=== PATIENT | female | born 1960 | race Caucasian/White ===

== ENCOUNTER 2016-10-31 07:53 | Emergency (ER) | payer OTHER ==
[~2016-10-31] VITALS: Ht 160 cm; Wt 75.0 kg
[~2016-10-31 07:53] MED LIST: PROZ20CA11 PO
[2016-10-31 07:55] VITALS: BP 141/74; PULSE 92; RESP 22; TEMP 99.1; O2SAT 99
[2016-10-31] MEDS ORDERED: TETANUS/DIPHTHERIA TOXOID ADULT 0.5 ML VIAL IM ONE (08:15)
[2016-10-31] MEDS ORDERED: IBUP800T23 PO (08:41)
[2016-10-31] MEDS ORDERED: BACT800T5 PO (08:41)
[2016-10-31] MEDS ORDERED: CEPH-460 PO (08:41)
[2016-10-31] MEDS ORDERED: IBUPROFEN 800 MG TAB PO ONE (08:45)
--- NOTE | 2016-10-31 08:45 | PD ---
HPI Chief Complaint: Skin Problem Time Seen by Provider: 08:40 Travel History International Travel<30 days: No Contact w/Intl Traveler<30days: No Traveled to known affect area: No History of Present Illness HPI 56-year-old female presents to the emergency department with complaint of a puncture wound to the bottom of her left foot from stepping on a nail. Does not know the entire nail was removed from the foot. Denies being up-to-date on tetanus vaccination. This area has become very painful and she cannot bear weight. Denies drainage from the puncture wound. Reports redness around the area. Denies fever, vomiting. Denies paresthesias, loss of sensation to the affected extremity. Has taken ibuprofen for symptom management. As the puncture wound covered with Band-Aid. No known allergies. Has no other medical complaints. No other modifying factors or associated signs and symptoms. PFSH Past Medical History Blood Disorders: No Depression: Yes Heart Rhythm Problems: No Cancer: No Cardiac Catheterization: Yes Cardiovascular Problems: No (HX CARDIAC CATH) High Cholesterol: No Chest Pain: Yes Congestive Heart Failure: No Cerebrovascular Accident: No Diabetes: No Diminished Hearing: No Endocrine: Yes Gastrointestinal Disorders: Yes (HEMROIDS AND CONSTIPATION) GERD: Yes Genitourinary: No Headaches: Yes Hepatitis: No Hiatal Hernia: No Hypertension: No Immune Disorder: No Musculoskeletal: Yes (NECK PAIN) Neurologic: No Psychiatric: Yes (DEPRESSION) Reproductive: No Respiratory: No Immunizations Current: No Migraines: No Myocardial Infarction: No Renal Failure: No Seizures: No Thyroid Disease: Yes ("SLUGGISH") Ulcer: No Tetanus Vaccination: Unknown Influenza Vaccination: Yes Menopausal: Yes Tubal Ligation: Yes (1985) Past Surgical History Abdominal Surgery: Yes (TUBAL LIGATION) AICD: No Body Medical Devices: CERVICAL HARDWARE Cardiac Surgery: No Cholecystectomy: No Genitourinary Surgery: No Gynecologic Surgery: Yes (TUBAL LIGATION) Joint Replacement: No Neurologic Surgery: Yes (2007 ANTERIOR CERVICAL FUSION) Pacemaker: No Thoracic Surgery: No Other Surgery: Yes (CERVICAL FUSION) Social History Alcohol Use: Yes (COUPLE BEERS PER NIGHT) Tobacco Use: No Substance Use: No Allergies-Medications (Allergen,Severity, Reaction): Coded Allergies: No Known Allergies (Verified , 10/31/16) Reported Meds & Prescriptions Reported Meds & Active Scripts Active Ibuprofen 800 Mg Tab 800 Mg PO Q8H PRN Bactrim DS (Sulfamethoxazole-Trimethoprim) 800-160 Mg Tab 1 Tab PO BID 10 Days Keflex (Cephalexin) 500 Mg Cap 500 Mg PO Q6H 10 Days Reported Prozac (Fluoxetine HCl) 20 Mg Cap 20 Mg PO DAILY Review of Systems Except as stated in HPI: all other systems reviewed are Neg Physical Exam Narrative GENERAL: Well-nourished, well-developed female patient, in no acute distress; afebrile, nontoxic-appearing SKIN: Warm and dry. Puncture wound noted to the bottom of the left foot to the pad just below the great toe; no foreign body palpated; area is with tenderness to palpation and there is surrounding erythema and mild edema; no drainage noted. Lower extremity is supple and nontender with 2+ pupils and sensory intact. HEAD: Atraumatic. Normocephalic. EYES: Pupils equal and round. No scleral icterus. No injection or drainage. ENT: Mucosa pink and moist. Airway patent. NECK: Trachea midline. CARDIOVASCULAR: Regular rate. RESPIRATORY: No accessory muscle use. GASTROINTESTINAL: Rounded. MUSCULOSKELETAL: No obvious deformities. No clubbing. No cyanosis. No edema. NEUROLOGICAL: Awake and alert. Oriented 3. No obvious cranial nerve deficits. Motor grossly within normal limits. Normal speech. PSYCHIATRIC: Appropriate mood and affect; insight and judgment normal. Data Data Last Documented VS Vital Signs Date Time Temp Pulse Resp B/P Pulse Ox O2 Delivery O2 Flow Rate FiO2 10/31/16 07:55 99.1 92 22 141/74 99 Room Air Orders Tetanus/Diphtheria Tox Adult (Tetanus/Di (10/31/16 08:15) Foot, Complete ([id number]) (10/31/16 08:38) Ibuprofen (Motrin) (10/31/16 08:45) Crutches (10/31/16 08:38) MDM Medical Decision Making Medical Screen Exam Complete: Yes Emergency Medical Condition: Yes Medical Record Reviewed: Yes Differential Diagnosis Puncture wound, wound infection, tetanus update Narrative Course 56-year-old female with puncture wound to the bottom of her left foot. She does not know if that entire nail was removed. The wound does appear to be infected without drainage. Tetanus updated in the ER. Left foot x-ray ordered. 0925: Left foot x-ray unremarkable and without foreign body. Crutches provided for support. Bactrim, Keflex, ibuprofen prescribed for home. Patient verbalizes understanding and agreement with treatment plan. Patient is medically cleared and stable for discharge. Discussed reasons to return to the emergency department. Instructed patient to follow up with primary care provider. Patient agrees with treatment plan. The patients vital signs are stable and the patient is stable for outpatient follow-up and treatment. Patient discharged home, stable and in no acute distress. Diagnosis Primary Impression: Puncture wound of left foot Qualified Code: S91.332A - Puncture wound of left foot, initial encounter Additional Impressions: Wound infection Tetanus-diphtheria vaccination administered at current visit Referrals: Primary Care Physician Patient Instructions: Diphtheria Tetanus and Pertussis Vaccine (ED), General Instructions, Puncture Wound (ED) Departure Forms: Tests/Procedures, Work Release Enter return to work date: Nov 01, 2016 Additional Instructions: Ibuprofen or Tylenol instructed and as needed for pain and inflammation Crutches as needed for support Keep area clean and dry; cover with Band-Aid Antibiotics as prescribed Follow-up with primary care provider Return to the emergency department immediately if worsening of symptoms Med/Other Pt SpecificInfo: Prescription(s) given Scripts Ibuprofen 800 Mg [id number] Mg PO Q8H PRN (PAIN SCALE 1 TO 10) #20 TAB Ref 0 Prov:Manuela Carranza 10/31/16 Sulfamethoxazole-Trimethoprim (Bactrim DS)800-160 Mg Tab1 Tab PO BID 10 Days Ref 0 Prov:Manuela Carranza 10/31/16 Cephalexin (Keflex)500 Mg [id number] Mg PO Q6H 10 Days Ref 0 Prov:Manuela Carranza 10/31/16 Disposition: 01 DISCHARGE HOME Condition: Stable Manuela Carranza Oct 31, 2016 08:45
--- NOTE | 2016-10-31 09:20 | RADRPT ---
EXAM DATE/TIME: 10/31/2016 09:21 [facility] COMPARISON: No previous studies available for comparison. INDICATIONS : Left foot foreign body on plantar surface; stepped on bebe nail. MEDICAL HISTORY : None. SURGICAL HISTORY : None. ENCOUNTER: Initial ACUITY: 1 day PAIN SCORE: 8/10 LOCATION: Left 1st digit plantar surface. FINDINGS: Three view examination of the left foot demonstrates no soft tissue swelling, dislocation, or fractur e. The tarsal bones appear intact. The interphalangeal and metatarsophalangeal joints are intact. The calcaneus is intact. Bony mineralization is normal. No radiodense foreign body is identified. CONCLUSION: Unremarkable examination of the left foot. Choco York MD on October 31, 2016 at 9:17 Board Certified Radiologist. This report was verified electronically.
== END 2016-10-31 09:26 | disposition home or self-care (01) ==
LOC: NEPK 07:53
DX: S91.332A Puncture wound without foreign body, left foot, initial encounter (principal); L53.9 Erythematous condition, unspecified; R60.9 Edema, unspecified; F32.9 Major depressive disorder, single episode, unspecified; K21.9 Gastro-esophageal reflux disease without esophagitis; W22.8XXA Striking against or struck by other objects, initial encounter; Z23 Encounter for immunization; Z79.899 Other long term (current) drug therapy
CPT/HCPCS: 73630; 90471; 90714; 99284; E0113

== ENCOUNTER → 2017-06-16 | Outpatient (CLI) | payer OTHER ==
[~2017-06-16] MED LIST changes: +BACT800T5 PO; +CEPH-460 PO; +IBUP1TAB7 PO
[2017-06-16 08:59] LABS: HEMATOCRIT 36.6 % (35.0-46.0); HEMOGLOBIN 12.5 GM/DL (11.6-15.3); MEAN CORPUSCULAR HEMOGLOBIN 33.9 PG (27.0-34.0); MEAN CORPUSCULAR HGB CONC 34.3 % (32.0-36.0); MEAN PLATELET VOLUME 7.5 FL (7.0-11.0); PLATELET COUNT 238 TH/MM3 (150-450); RED CELL DISTRIBUTION WIDTH 12.6 % (11.6-17.2); WHITE BLOOD COUNT 3.3 TH/MM3 (4.0-11.0)
[2017-06-16 09:28] LABS: ALBUMIN 3.7 GM/DL (3.4-5.0); AST (GOT) 55 U/L (15-37); BICARBONATE 24.7 MEQ/L (21.0-32.0); BLOOD UREA NITROGEN 13 MG/DL (7-18); CALCIUM 8.8 MG/DL (8.5-10.1); CHLORIDE 109 MEQ/L (98-107); CREATININE 0.45 MG/DL (0.50-1.00); GLOMERULAR FILTRATION RATE 144 ML/MIN (>89); GLUCOSE,FASTING 84 MG/DL (74-99); SODIUM (NA) 142 MEQ/L (136-145)
[2017-06-16 09:30] LABS: ALT (GPT) 72 U/L (10-53); CHOLESTEROL 253 MG/DL (120-200); TRIGLYCERIDES 307 MG/DL (42-150)
[2017-06-16 09:39] LABS: ALKALINE PHOSPHATASE 92 U/L (45-117); CHOLESTEROL/ HDL RATIO 6.15 RATIO; HDL CHOLESTEROL 41.1 MG/DL (40.0-60.0); LDL CHOLESTEROL 151 MG/DL (0-99); TOTAL BILIRUBIN ADULT 0.2 MG/DL (0.2-1.0)
== END ==
LOC: OLAB 07:27
PROVIDERS: ATTEND Allergy & Immunology
DX: E78.2 Mixed hyperlipidemia (principal); R94.6 Abnormal results of thyroid function studies
CPT/HCPCS: 80053; 80061; 84443; 85027